=== PATIENT | female | born 1965 | race Caucasian/White ===

== ENCOUNTER → 2016-05-23 | Outpatient (CLI) | payer OTHER ==
--- NOTE | 2016-05-23 17:24 | MA ---
Screening Digital Mammogram, With iCAD Analysis Clinical Indications: Routine screening. A sister was diagnosed with breast cancer in her 30s. Technique: Standard cephalocaudal projections are obtained. Digital breast tomosynthesis was perfor med in the MLO projection, with reconstruction at 1.0-mm slice thickness and composite MLO views mary nstructed. This examination is processed by the iCAD computer aided detection system. Comparison: May 2015, April 2014, April 2013, March 2012, March 2011, December 2009, December 2008, December 2007. Breast Density: Type C: Heterogeneously dense. Findings: CAD was reviewed. There is a new group of microcalcifications in the upper slightly media l right breast. The left breast is stable in appearance. Impression: Right breast calcifications require further evaluation, BI-RADS 0. Recommendation: Right breast magnification views. [facility] will send a result letter to the patient. The patient's information is entered into a reminder system with a target due date for her next mammo gram. E:royal
== END ==
LOC: FIMAGING 12:28
DX: Z12.31 Encounter for screening mammogram for malignant neoplasm of breast (principal); Z80.3 Family history of malignant neoplasm of breast

== ENCOUNTER → 2016-05-30 | Outpatient (CLI) | payer OTHER | LOC: FIMAGING 12:46 | PROVIDERS: ATTEND Obstetrics & Gynecology | DX: R92.0 Mammographic microcalcification found on diagnostic imaging of breast (principal) | CPT/HCPCS: G0206 ==

== ENCOUNTER → 2016-06-21 | Day surgery (SDC) | payer OTHER ==
[~2016-06-21] MED LIST: THROMBIN (BOVINE) 5,000 UNIT VIAL TP ONE
== END | disposition home or self-care (01) ==
LOC: FIMAGING 08:21
PROVIDERS: ATTEND Obstetrics & Gynecology
PROC: 0HBT3ZX Excision of Right Breast, Percutaneous Approach, Diagnostic (ICD-10-PCS; principal; 2016-06-21)
DX: D05.11 Intraductal carcinoma in situ of right breast (principal)
CPT/HCPCS: G0206

== ENCOUNTER → 2016-07-01 | Outpatient (CLI) | payer OTHER ==
[~2016-07-01] MED LIST changes: +GADOBUTROL 10 ML VIAL IVP ONE; -THROMBIN (BOVINE) 5,000 UNIT VIAL TP ONE
== END ==
LOC: FIMAGING 11:32
DX: D05.11 Intraductal carcinoma in situ of right breast (principal); L76.32 Postprocedural hematoma of skin and subcutaneous tissue following other procedure
CPT/HCPCS: 0159T; 77059; A9585; C8908

== ENCOUNTER → 2016-09-19 | Outpatient (CLI) | payer OTHER | LOC: FLAB 13:55 | PROVIDERS: ATTEND Radiology Radiation Oncology | DX: R06.02 Shortness of breath (principal); C50.919 Malignant neoplasm of unspecified site of unspecified female breast ==

== ENCOUNTER 2016-09-20 23:19 | Emergency (ER) | payer OTHER ==
[2016-09-21] MEDS ORDERED: IPRATROPIUM/ALBUTEROL 3 ML DEYVIAL IH ONE (00:51)
[2016-09-21 01:02] LABS: % IMMATURE GRANULYOCYTES 0.4 % (0.0-1.1); ABSOLUTE IMMATURE GRANULOCYTES 0.04 10^3/uL (0.00-0.10); ADD DIFF? NO; ADD MORPH? NO; ADD SCAN? NO; ATYPICAL LYMPHOCYTE FLAG 10 (0-99); FRAGMENT RBC FLAG 0 (0-99); HEMATOCRIT 41.1 % (38.0-47.0); LEFT SHIFT FLG 0 (0-99); LIPEMIA HEMOLYSIS FLAG 90 (0-99); MEAN CELL HEMOGLOBIN 28.6 pg (27.9-34.1); MEAN CELL HEMOGLOBIN CONCENTR. 34.1 g/dL (32.4-36.7); MEAN PLATELET VOLUME 10.3 fL (8.7-11.7); PLATELET CLUMPS FLAG 10 (0-99); PLATELET COUNT 392 10^3/uL (150-400); RED BLOOD CELL COUNT 4.89 10^6/uL (4.18-5.33); RED CELL DISTRIBUTION WIDTH 12.4 % (11.5-15.2)
[2016-09-21 01:20] VITALS: BP 157/96; PULSE 87; RESP 15; O2SAT 97
[2016-09-21 01:26] LABS: ANION GAP 13 mEq/L (8-16); CALCIUM 10.1 mg/dL (8.5-10.4); CARBON DIOXIDE 21 mEq/l (22-31); CHLORIDE 109 mEq/L (97-110); CREATININE 0.7 mg/dL (0.6-1.0); GLOMERULAR FILTRATION RATE > 60; GLUCOSE 123 mg/dL (70-100); POTASSIUM 3.8 mEq/L (3.5-5.2); SODIUM 143 mEq/L (134-144)
[2016-09-21] MEDS ORDERED: predniSONE 20 MG TAB PO ONE (01:37)
--- NOTE | 2016-09-21 01:38 | EDPHY ---
H & P Stated Complaint: SOB, cough congestion, sinus pressure Time Seen by Provider: 09/21/16 00:25 HPI/ROS: Chief Complaint: Cough, shortness of breath HPI: 50-year-old woman with a history of breast cancer status post lumpectomy who is currently under going day of radiation therapy began having worsening upper respiratory symptoms and congestion for the last several days. She noticed worsening tightness in her chest and shortness of breath within the last day or 2. She had a chest x-ray ordered by her radiation oncologist yesterday which was normal. No fevers or chills. She has been using her Proventil without significant relief. Has a dry nonproductive cough. No pain with inspiration. No palpitations. No fainting. ROS: 10 point Review of Systems is negative except as noted in the HPI. PMH: Breast cancer, asthma, hypertension Medications: Amlodipine, so event, Proventil Allergies: Novocain and sulfa Social History: No smoking, no alcohol, no recreational drug use Family History: non-contributory Physical Exam: Gen: Awake, Alert, No Distress HEENT: Nose: no rhinorrhea Eyes: PERRLA, EOMI Mouth: Moist mucosa Neck: Supple, no JVD Chest: nontender, mild diffuse expiratory wheezing, no focal rales or rhonchi Heart: S1, S2 normal, no murmur Abd: Soft, non-tender, no guarding Back: no CVA tenderness, no midline tenderness Ext: no edema, non-tender Skin: no rash Neuro: CN II-XII intact, Sensation grossly intact, Strength 5/5 in bilateral upper and lower extremities - Personal History LMP (Females 10-55): 22-28 Days Ago - Medical/Surgical History Hx Asthma: Yes Hx Chronic Respiratory Disease: No Hx Diabetes: No Hx Cardiac Disease: No Hx Renal Disease: No Hx Cirrhosis: No Hx Alcoholism: No Hx HIV/AIDS: No Hx Splenectomy or Spleen Trauma: No Other PMH: breast CA, hypertension, asthma - Social History Smoking Status: Never smoked Constitutional: Initial Vital Signs Temperature (C) 37.1 C 09/20/16 23:22 Heart Rate 106 H 09/20/16 23:22 Respiratory Rate 20 09/20/16 23:22 Blood Pressure 148/107 H 09/20/16 23:22 O2 Sat (%) 96 09/20/16 23:22 O2 Delivery Mode Room Air Allergies/Adverse Reactions: procaine HCl [From Novocain] Allergy (Verified 09/20/16 23:21) Sulfa (Sulfonamide Antibiotics) Allergy (Verified 09/20/16 23:21) Home Medications: Medication Instructions Recorded Amlodipine Besylate 09/20/16 Proventil 09/20/16 Serevent Diskus (*) 09/20/16 predniSONE 60 mg PO DAILY #9 tab 09/21/16 Medical Decision Making ED Course/Re-evaluation: 50-year-old with expiratory wheezing and shortness of breath. Her D-dimer is negative. She has had a negative chest x-ray. She is improved after a DuoNeb here. Will start her on prednisone. She will follow up with her radiation oncologist, return for worsening. - Data Points Laboratory Results: Laboratory Results 09/21/16 00:47 09/21/16 00:47 09/21/16 09/21/16 09/21/16 00:47 00:47 00:47 WBC 10.93 10^3/uL H 10^3/uL (3.80-9.50) RBC 4.89 10^6/uL 10^6/uL (4.18-5.33) Hgb 14.0 g/dL g/dL (12.6-16.3) Hct 41.1 % % (38.0-47.0) MCV 84.0 fL fL (81.5-99.8) MCH 28.6 pg pg (27.9-34.1) MCHC 34.1 g/dL g/dL (32.4-36.7) RDW 12.4 % % (11.5-15.2) Plt Count 392 10^3/uL 10^3/uL (150-400) MPV 10.3 fL fL (8.7-11.7) Neut % (Auto) 80.9 % H % (39.3-74.2) Lymph % (Auto) 8.3 % L % (15.0-45.0) [place] % (Auto) 8.2 % % (4.5-13.0) Eos % (Auto) 1.7 % % (0.6-7.6) Baso % (Auto) 0.5 % % (0.3-1.7) Nucleat RBC Rel Count 0.0 % % (0.0-0.2) Absolute Neuts (auto) 8.84 10^3/uL H 10^3/uL (1.70-6.50) Absolute Lymphs (auto) 0.91 10^3/uL L 10^3/uL (1.00-3.00) Absolute Monos (auto) 0.90 10^3/uL H 10^3/uL (0.30-0.80) Absolute Eos (auto) 0.19 10^3/uL 10^3/uL (0.03-0.40) Absolute Basos (auto) 0.05 10^3/uL 10^3/uL (0.02-0.10) Absolute Nucleated RBC 0.00 10^3/uL 10^3/uL (0-0.01) Immature Gran % 0.4 % % (0.0-1.1) Immature Gran # 0.04 10^3/uL 10^3/uL (0.00-0.10) D-Dimer < 0.27 ug/mLFEU ug/mLFEU (0.00-0.50) Sodium 143 mEq/L mEq/L (134-144) Potassium 3.8 mEq/L mEq/L (3.5-5.2) Chloride 109 mEq/L mEq/L (97-110) Carbon Dioxide 21 mEq/l L mEq/l (22-31) Anion Gap 13 mEq/L mEq/L (8-16) BUN 17 mg/dL mg/dL (7-23) Creatinine 0.7 mg/dL mg/dL (0.6-1.0) Estimated GFR > 60 Glucose 123 mg/dL H mg/dL (70-100) Calcium 10.1 mg/dL mg/dL (8.5-10.4) Medications Given: Discontinued Medications Albuterol/Ipratropium (Duoneb) 3 ml IH EDNOW ONE Stop: 09/21/16 00:52 Last Admin: 09/21/16 00:59 Dose: 3 ml Prednisone (Prednisone) 60 mg PO EDNOW ONE Stop: 09/21/16 01:38 Last Admin: 09/21/16 01:47 Dose: 60 mg Departure - Departure Disposition: Home, Routine, Self-Care Clinical Impression: Exacerbation of asthma Condition: Good Instructions: Asthma (ED) Additional Instructions: Follow up with your physician in 2-3 days for re-evaluation. Take your full course of prednisone as prescribed. Return for increasing shortness of breath, worsening cough, fevers, chills, chest pain, or any other concerns. Referrals: Shandra Hampton MD [Primary Care Provider] - As per Instructions Prescriptions: predniSONE 60 mg PO DAILY #9 tab
[2016-09-21 01:48] VITALS: TEMP 98.2
== END 2016-09-21 01:47 | disposition home or self-care (01) ==
DX: J45.901 Unspecified asthma with (acute) exacerbation (principal); I10 Essential (primary) hypertension; Z85.3 Personal history of malignant neoplasm of breast

== ENCOUNTER → 2017-01-03 | Outpatient (CLI) | payer OTHER | LOC: FIMAGING 13:26 | PROVIDERS: ATTEND Internal Medicine Hematology & Oncology | DX: Z08 Encounter for follow-up examination after completed treatment for malignant neoplasm (principal); Z86.000 Personal history of in-situ neoplasm of breast | CPT/HCPCS: G0206 ==

== ENCOUNTER → 2017-05-26 | Outpatient (CLI) | payer OTHER | LOC: FIMAGING 10:57 | PROVIDERS: ATTEND Internal Medicine Hematology & Oncology | DX: Z12.31 Encounter for screening mammogram for malignant neoplasm of breast (principal); Z85.3 Personal history of malignant neoplasm of breast ==

== ENCOUNTER → 2017-05-31 | Outpatient (CLI) | payer OTHER | LOC: CIMAGING 13:16 | PROVIDERS: ATTEND Internal Medicine Hematology & Oncology | DX: R92.0 Mammographic microcalcification found on diagnostic imaging of breast (principal) ==

== ENCOUNTER → 2018-08-14 | Outpatient (CLI) | payer OTHER | LOC: FIMAGING 13:49 | PROVIDERS: ATTEND Otolaryngology | DX: K11.5 Sialolithiasis (principal) ==